=== PATIENT | female | born 1930 | race Caucasian/White ===

== ENCOUNTER 2017-08-09 15:10 | Inpatient (IN) | payer MEDICARE, OTHER ==
[~2017-08-09] VITALS: Ht 170.2 cm; Wt 96.6 kg
[~2017-08-09 15:10] MED LIST: ALLOPURINOL 10100 M1 PO; ASPIR 8181 MG PO; ATIVAN0.5 MG PO; DITROPAN XL15 MG; GABAPENTIN 100100 MG PO; KLOR-CON 1010 MEQ PO; LASIX 40 MG TAB40 M2 PO; LIPITOR10 MG PO; LOPRESSOR25 PO; NORVASC5 MG PO; PLAVIX 75 MG TA75 M1 PO; REQUIP 1 MG TABL1 M1 PO; SYNTHROID75 MCG PO; TRAMADOL 50 MG50 MG PO
[2017-08-09 18:17] VITALS: BP 133/58
--- NOTE | 2017-08-09 19:50 | NUR ---
PT CAME FROM [facility] IN [facility] PT IS ALERT AN ORIENTED X 2 PT IS CONFUSED COULD NOT ANSWER QUESTIONS REGARDING HOME MEDICATIONS, PT IS BEDREST Q 2 TURNS PT HAS LEFT BUTTOCK WOUND WAS ADMITTED WITH HAS BRUISING ON RIGHT SIDE OF FACE, PT ON SPECILTY BED PHYSICIAN SAW PT ORDERED HEAD CT CONSULTED SURGERY RESTARTED HOME MEDICATIONS ORDERED LABS FLUIDS VITALS STABLE PT IS SR ON THE MONITOR, WILL CONTINUE TO MONITOR
[2017-08-09 20:00] VITALS: BP 109/89
[2017-08-09 21:52] LABS: URINE BILIRUBIN NEGATIVE (Negative); URINE BLOOD 1+ (Negative); URINE CLARITY CLEAR; URINE COLOR YELLOW; URINE GLUCOSE-RANDOM NEGATIVE (Negative); URINE KETONES NEGATIVE (Negative); URINE NITRITE-REFLEX NEGATIVE (Negative); URINE PROTEIN TRACE (Negative); URINE SPECIFIC GRAVITY 1.015 (1.005-1.030); URINE UROBILINOGEN 0.2 E.U./dl (0.2-1.0)
[2017-08-09 21:53] LABS: URINE LEUKOCYTES-REFLEX 2+ (Negative)
[2017-08-09 21:59] LABS: SQUAMOUS 0-3 Few /LPF (0-3)
[2017-08-09 22:00] LABS: CASTS None Seen /LPF (None Seen); CRYSTALS None Seen /LPF (None Seen); MUCUS None Seen strn/LPF (None Seen); URINE WBC-REFLEX >25 Many /HPF (0-5); WBC CLUMPS Few (None Seen)
[2017-08-09 22:01] LABS: BACTERIA-REFLEX 1-9 Few /HPF (None Seen); URINE RBC 0-2 Rare /HPF (0-2)
[2017-08-10] VITALS (7 sets, daily range): BP systolic 110–153; BP diastolic 43–56
[2017-08-10] MEDS ORDERED: MAGOX 400400 MG PO (02:29)
[2017-08-10] MEDS ORDERED: MULTI VITAMIN1 EACH PO (02:31)
[2017-08-10] MEDS ORDERED: PREDNISONE 5 MG5 M1 PO (02:32)
[2017-08-10] MEDS ORDERED: PROBIOTIC1 EAC1 PO (02:34)
[2017-08-10] MEDS ORDERED: TOVIAZ4 M1 PO (02:42)
[2017-08-10] MEDS ORDERED: ZANTAC 150MG T150 MG PO (02:45)
[2017-08-10] MEDS ORDERED: TYLENOL EXTRA500 MG PO (02:49)
[2017-08-10] MEDS ORDERED: ATIVAN0.5 MG PO (02:52)
[2017-08-10] MEDS ORDERED: ONDANSETRON HCL4 M2 PO (02:57)
[2017-08-10] MEDS ORDERED: DUONEB 2.5-0.5 M3 ML INH (02:58)
[2017-08-10] MEDS ORDERED: IPRATROPIU0.2 MG/1 M INH (02:59)
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
[2017-08-10 03:41] LABS: CALCIUM 8.7 mg/dL (8.5-10.1); CREATININE 1.6 mg/dL (0.6-1.3); POTASSIUM 4.3 mmol/L (3.5-5.1)
[2017-08-10] MEDS ORDERED: SANTYL OINTMENT30 G1 TOP (04:52)
--- NOTE | 2017-08-10 06:50 | NUR ---
HONG IN ROOM, UPDATED ON STATUS AND SHOWN WOUND PICTURES. STATES WILL SEE HER LATER. WILL MONITOR.
[2017-08-10 08:26] LABS: ABSOLUTE EOSINOPHILS 0.1 thou/uL (0.0-0.7); ABSOLUTE LYMPHOCYTES 1.8 thou/uL (0.8-5.3); ABSOLUTE MONOCYTES 0.5 thou/uL (0.0-1.2); ABSOLUTE NEUTROPHILS 6.2 thou/uL (1.6-8.1); BASOPHILS 0.5 %; EOSINOPHILS 1.3 %; HEMATOCRIT 33.8 % (37.0-47.0); HEMOGLOBIN 10.9 gm/dL (12.0-15.0); MCH 26.5 pg (26.0-34.0); MCHC 32.2 g/dL (28.0-37.0); MCV 82.3 fL (80.0-100.0); MONOCYTES 5.3 %; MPV 7.7 fl. (7.2-11.1); NUCLEATED RBCS 0 /100WBC; PLATELET COUNT* 219 thou/uL (150-400); POLYS 71.9 %; RDW-CV 15.3 % (10.5-14.5); WBC 8.6 thou/uL (4.0-11.0)
[2017-08-10 08:51] LABS: PREALBUMIN 11.1 mg/dL (18.0-35.7)
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
--- NOTE | 2017-08-10 11:34 | NUR ---
ASSUMED ARE OF PATIENT THIS AM AT 0730. PATIENT IS ALERT AND ORIENTED TO PERSON ONLY. REORIENTED TO PLACE AND TIME AND WHY SHE IS IN THE HOSPITAL. PATIENT DENIES PAIN. BRUSIN BHAVANA TO THE RIGHT SIDE OF HER BODY AND FACE. PATIENT HAS A MODERATE SIZE PRESSURE WOUND TO HER RIGHT BUTTOCK. PATIENT KEPT NPO FOR PLACEMENT OF A PICC LINE. VASCULAR CONSULTED FOR PICC LINE PLACEMENT, AND THEN THE PICC LINE NURSE WAS CONTACTED. PATIENT NEEDS TO BE CLEARED BY NEPHROLOGY PRIOR TO PLACEMENT OF THE PICC LINE. DR HEBERT YOU NOTIFIED AND CONSULT ORDERED. PATIENT REPOSITIONED Q 2 HR. IV FLUIDS INFUSING PER ORDER. TELE SHOWS SR WITH A 1D AVB. PATIEN GIVEN ORAL CARE PRN. MIGUEL IS TO DD. UNEQUAL PUPILS NOTED WITH ASSESSMENT.
--- NOTE | 2017-08-10 12:56 | NUR ---
WOUND CARE NOTE: CONSULT RECEIVED FOR UNSTAGEABLE WOUND TO BUTTOCKS. PATIENT PRESENTS WITH AN UNSTAGEABLE PRESSURE ULCER TO THE LEFT BUTTOCK. WOUND MEASURES 7X6.6X4. FULL THICKNESS ULCERATION WITH 85% OF WOUND BED COVERED WITH MOIST BLACK AND YELLOW ESCHAR. FOUL ODOR NOTED. GATITO-WOUND WITH IRRITATION FROM DRAINAGE. PATIENT STATES SHE USES BRIEFS AT HOME TO HELP KEEP THE DRESSING IN PLACE. EDUCATED PATIENT ON IMPORTANCE OF LEAVING BRIEFS OFF BECAUSE THEY HOLD MOISTURE AND HEAT TO THE SKIN, COMMUNICATED UNDERSTANDING. WOUND WAS CLEANSED WITH WOUND CLEANSER, PATTED DRY. PACKED WITH 1/4 STRENGTH DAIKINS MOISTENED GAUZE AND COVERED WITH AN ABD. PATIENT TOLERATED DRESSING CHANGE WELL. EDUCATED PATIENT ON IMPORTANCE OF KEEPING OFF AREA, COMMUNICATED UNDERSTANDING. RECOMMEND DEBRIDEMENT CONTINUE LOW AIR LOSS MATTRESS KEEP OFF WOUND ENCOURAGE GOOD NUTRITION AND HYDRATION ONCE ABLE
--- NOTE | 2017-08-10 17:34 | CON ---
[address] [address] CONSULTATION Name: AGUEDA EVERETT Room: [address] IN .R.#: [id number] Admission: 08/09/17 Attend Phys: Kierra Mares Discharge: Date of : [birth year] Report #: [id number] THIS REPORT FOR: //name// CC: FAM unknown Rosaura Corado DATE OF SERVICE: 08/10/2017 INFECTIOUS DISEASE CONSULTATION ATTENDING PHYSICIAN: Dr. Corado. REASON FOR EVALUATION: Complicated urinary tract infection. HISTORY OF PRESENT ILLNESS: Chart reviewed, patient examined. This is an 86-year-old woman with history of renal cell carcinoma, sleep apnea, who apparently sustained an injury as a result of fall I believe due to a syncopal episode. She is not real forthcoming with any details. I suspect that she lacks certainly what happened. She notes this was roughly 2 weeks ago and it is likely consistent with bruising on the right side of face, torso, lower limbs. She was evaluated and subsequently admitted. She had an elevated troponin, concerned about ischemic cardiac event. Creatinine was elevated at 2.24. Urinalysis showed moderate pyuria. Urine culture is pending. She does have some degree of abdominal related pain and discomfort. She has had some issues with constipation and no bowel movement for a few days. It is not clear that she has had any preadmission fevers. She has been afebrile during the short stay thus far. Denies significant pulmonary-related complaints. Chest x-ray showed diffuse bilateral interstitial opacities, question of atypical or viral pneumonia versus pulmonary edema, empirically started on vancomycin, piperacillin and tazobactam. ALLERGIES: Listed to OXYCODONE, CEPHALEXIN, NITROFURANTOIN, BUDESONIDE, CEFTRIAXONE, FORMOTEROL. CURRENT MEDICATIONS: Include ropinirole, atorvastatin, vancomycin, Zosyn, allopurinol, oxybutynin, famotidine, aspirin, amlodipine, metoprolol, clopidogrel, levothyroxine, ondansetron, gabapentin. PAST MEDICAL HISTORY: As noted above, has sleep apnea, renal cell carcinoma, bilateral cataracts, history of cholelithiasis, previous cholecystectomy, hysterectomy. SOCIAL HISTORY: Nonsmoker, no ethanol. FAMILY HISTORY: [place] [address] CONSULTATION Name: AGUEDA EVERETT Room: [address]#: [id number] Admission: 08/09/17 Attend Phys: Kierra Mares Discharge: Date of : [birth year] Report #: [id number] REVIEW OF SYSTEMS: As above. PHYSICAL EXAMINATION: GENERAL: She is alert, cooperative, in moderate distress. She appears chronically ill. She has got extensive contused areas over the right side of her face, upper right thigh, lateral aspect, appears undernourished. VITAL SIGNS: Temperature 98.9, pulse 70, respirations 17, blood pressure 129/43. SKIN: Warm, dry. HEENT: As noted above. NECK: Supple. LUNGS: Few scattered coarse breath sounds. HEART: Regular. I do not appreciate any murmur. ABDOMEN: Soft. There is some tenderness, although there are no overt peritoneal signs. GENITOURINARY: Deferred. RECTAL: Deferred. LABORATORY DATA: Initial troponin 0.13. CT of the head, diffuse moderate cerebral atrophy, no acute process. Chest x-ray as described, diffuse bilateral interstitial opacities. Lactic acid of 1.0. Urinalysis greater than 25 white cells with some WBC clumps, 1-9 bacteria. CBC: White count of 8.6, H and H 10.9 and 33.8, platelets of 219. Blood cultures are sterile thus far. Prealbumin of 11.1. CRP of 182.7. Urine culture, no growth thus far. ASSESSMENT: Complicated urinary tract infection, not clear if this is a complication as a result of syncopal episode and fall, roughly 2 weeks ago, perhaps had poor p.o. intake. She is not real clear if she has been able to keep up with her fluids with some urinary stasis. Additionally, has changes noted on chest x-ray, there is question of atypical pneumonia. PLAN: We will continue empiric therapy, pyogenic infection of those 2 sites. Add macrolide if something is less likely, some sort of a typical pathogen. She is certainly in tenuous situation, we have to monitor expectantly. <ELECTRONICALLY SIGNED> By: Velasquez Montiel MD 08/10/17 1734 1412 170Jofamilia Montiel MD /nt
--- NOTE | 2017-08-11 03:24 | NUR ---
ASSUMED PT CARE AT 19:15 RECEIVED REPORT FROM NURSE. PT IS ALERT AWAKE ORIENTED X 3. LAYING IN BED WITH NO COMPLAIN OF PAIN BUT STATED SOME KIND OF DISCOMFORT IN BACK. CHANGE POSITION AND MADE COMFORTABLE. SINUS RYTHM ON THE MONITOR. IV FLUID RUNNING IN L FOREARM LINE. ASSESSMENT PERFORMED, WOUND DRESSING IS INTACT, DRY, CLEAN. OXYGEN WAS TITRATED FOROM 3 LITERS TO 2 LITERS AND PT SATURATION WAS 94 AT 2 LITERS NC. MEDICATION WERE ADMNISTERED. MADE COMORTABLE, SCDS ON, TURN Q 2 HOURS. SAFETY PRECAUTION , BED ALARM ON. RESTING IN BED. MADE NPO FPR POSSIBLE SX TOMORROW. WILL CONTINUE TO MONITOR.
[2017-08-11 04:00] VITALS: BP 123/63
[2017-08-11 04:42] LABS: HEMATOCRIT 32.8 % (37.0-47.0); HEMOGLOBIN 10.5 gm/dL (12.0-15.0); MCH 26.4 pg (26.0-34.0); MCV 82.6 fL (80.0-100.0); MPV 8.1 fl. (7.2-11.1); RBC 3.97 mil/uL (4.20-5.00); RDW-CV 15.5 % (10.5-14.5); WBC 9.7 thou/uL (4.0-11.0)
[2017-08-11 04:54] LABS: CALCIUM 8.5 mg/dL (8.5-10.1); CREATININE 1.1 mg/dL (0.6-1.3); POTASSIUM 3.9 mmol/L (3.5-5.1)
--- NOTE | 2017-08-11 06:37 | NUR ---
DR. RIGGINS ON FLOOR, STATES WILL TALK WITH DR. BELLO AND POSSIBLY DEBRIDE WOUND THIS AFTERNOON. STATES CAN HAVE BREAKFAST BUT THEN NPO. WILL MONITOR.
[2017-08-11 08:00] VITALS: BP 151/51
--- NOTE | 2017-08-11 08:00 | NUR ---
AM ASSESSMENT COMPLETE, DEFER TO COMPUTER CHARTING. DIGITAL IMAGING TECHNICIAN TRACKING SB WITH PVC'D. ALERT ORIENTED THIS AM, DENIES PAIN. DRESSING INTACT TO LEFT BUTTOCK. REINFORCEMENT TEACHING GIVEN ON NPO AFTER BREAKFAST FOR PROCEDURE TODAY, VERBALIZED UNDERSTANDING. CALL LIGHT WITHIN REACH, BED ALARM ON FOR SAFETY. WILL MONITOR.
[2017-08-11 12:00] VITALS: BP 131/51
--- NOTE | 2017-08-11 15:36 | NUR ---
CARDIOLOGY CALLING REPORTING PATIENT OK FOR SURGERY. CALL PLACED TO SURGERY NOTIFIED. PATIENT RESTING IN BED AT THIS TIME WITH NO COMPLAINTS. DRESSING CHANGED TO WOUND PER ORDERS. CALL LIGHT WITHIIN REACH, WILL MONITOR.
--- NOTE | 2017-08-11 16:07 | NUR ---
Spoke with DPOA, discussed possible need for skilled at dc, FLORINOA would like Pt to dc to [facility] bed if possible. CM to contact [facility] bed [place].
[2017-08-11 16:45] VITALS: BP 157/57
--- NOTE | 2017-08-11 18:11 | NUR ---
POULTRY CUTTER TRACKING WITH NO CHANGE IN RHYTHM. ALERT, ORIENTED - NO COMPLAINTS OF PAIN TO NURSING AT THIS TIME. DRESSING CHANGED EARLIER TO WOUND ON LEFT BUTTOCK - PATIENT EDUCATED ABOUT NPO AFTER MIDNIGHT FOR PROCEDURE TOMORROW. CALL PLACED TO DPOA ATTEMPTED TO NOTIFY OF PROCEDURE, NO ANSWER. ASSIST GIVEN WITH DINNER TRAY SET UP. CALL LIGHT WITHIN REACH, BED ALARM ON FOR SAFETY. WILL CONTINUE WITH PLAN OF CARE.
[2017-08-11 20:00] VITALS: BP 168/55
[2017-08-12] VITALS: BP 145/39
[2017-08-12 04:00] VITALS: BP 177/76
--- NOTE | 2017-08-12 05:25 | NUR ---
ASSUMED CARE OF PT AT 1900 PT ALERT AND ORIENTED BUT CONFUSED AT TIMES AT BASELINE. VS AND ASSESSMENT STABLE. PT CONTINUES ON LOW AIR LOSS MATRESS, TURNED Q2H. O2 2L NC. NSR ON THE MONITOR. DENIED ANY COMPLAINTS AND SLEPT THROUGH THE NIGHT. WILL CONTINUE PLAN OF CARE.
[2017-08-12 06:13] VITALS: BP 177/76
[2017-08-12 10:35] VITALS: BP 167/63
--- NOTE | 2017-08-12 11:54 | NUR ---
CONTINUE TO FOLLOW, PT HAD DEBRIDEMENT TODAY. PER NOTES, THE FAMILY IS INTERESTED IN [facility]. MADE CONTACT WITH [facility]/SWING BED UNIT. THEY WILL TAKE EVAL TUESDAY BUT ASKED THAT INITIAL INFO BE FAXED. EXPLAINED WHERE PT LIVED, [facility]EN NOTED THAT [facility] IN [place] MAY HAVE SWING BEDS ALSO AND JUST WANTED TO BE SURE FAMILY WAS AWARE OF THAT. WILL DISCUSS FURTHER WITH DPOA. FAXED FACE SHEET AND PROGRESS NOTE INFO TO KIRSTEN/[facility] SWING BED TODAY. WILL F/U WITH HER ON TUESDAY [facility] [phone] FAX [phone]
--- NOTE | 2017-08-12 12:31 | NUR ---
Nutrition: Pt assessed for pressure ulcer on Lt buttock. Admitted with elevated troponin. Wt: 212#. Eating 75% of Heart Healthy diet. RX: vanc, aspirin. Pt sees wound care outpatient. No albumin recorded, prealbumin 11.1. Physciain indicaed Mild PCM - defer DX. Increased nutrient needs related to wound healing as evidenced by pressure ulce, labs. RD will order Arginaid packets b.i.d. to aid in wound healing. Recommend MVI use.
--- NOTE | 2017-08-12 14:28 | EKG ---
[place] [address] ELECTROCARDIOGRAM REPORT Name: AGUEDA EVERETT Room: [address] IN ..#: [id number] Admission: 08/09/17 Attend Phys: Kierra Mares Discharge: Date of : [birth year] Report #: [id number] THIS REPORT FOR: //name// [facility] Test Date: 2017-08-12 Test Time: 07:35:24 Pat Name: AGUEDA EVERETT Department: Room: [address] Gender: F Fly Raiser Lockstitch: : 1930 Requested By: Selvin Alanis Order Number: [id number] Reading MD: Roberto Carlos Huizar Measurements Intervals [place] Rate: 62 P: 11 OH: 173 QRS: -26 QRSD: 108 T: -12 QT: 444 QTc: 451 Interpretive Statements Sinus rhythm Supraventricular bigeminy Probable left atrial enlargement Left ventricular hypertrophy Borderline T abnormalities, inferior leads Compared to ECG 03/20/2015 12:06:48 Atrial premature complex(es) now present Left ventricular hypertrophy now present T-wave abnormality now present Sinus bradycardia no longer present Electronically Signed On 08-12-2017 14:28:24 CDT by Roberto Carlos Huizar [email or web address] <ELECTRONICALLY SIGNED> By: Roberto Carlos Huizar MD, [facility] 08/12/17 1428 0735 0735 Roberto Carlos Huizar MD, [facility] /EPI
--- NOTE | 2017-08-12 15:51 | NUR ---
CONSULTED TO PLACE PICC FOR DIFFICULT IV ACCESS AND NEED FOR HALFWAY ATB THERAPY. ARRIVED PER BED TO INFUSION LAB BAY 3. PT NOTED ALERT TO PERSON AND THAT SHE IS IN HOSPITAL. ORDER AND CONSENT NOTED. RIGHT UPPER ARM ASSESSED WTIH OUTRASOUND. RIGHT BASILIC IDENTIFIED AND NOTED TO BE WIDLEY PATENT. SINGLE LUMAN POWER PICC PLACED TO RIGHT BASILC PER OSPITAL PROTOCOL. LINE WAS TRIMMED TO 43CM AND ADVANCED TO 0CM EXTERNAL WITHOUT DIFFICULTY. LINE CONFIRMED WTIH SHERLOCK 3CG. LINE FLUSHED WITH EASE AND GOOD BRISK BLOOD RETURN NOTED WITH ASPERATION. LINE SECURED AND RELEASED FOR IMMEDIATE USE. PRIMARY NURSING AWARE.
[2017-08-12 16:41] VITALS: BP 131/44
--- NOTE | 2017-08-12 18:26 | NUR ---
PT IN ROOM RELAXING. PT A&O X4 BUT CONFUSED AT TIMES. VSS. PT M/S STATUS. PT Q2T, OPEN WOUND ON L BUTTOCKS DEBRIDEMENT DONE THIS MORNING. SINGLE LUMEN PICC LINE PLACED R UPPER BASILLIC. PT ON 3 L NC. RIVERA CATH /T WOUND. PT DENIES ANY COMPLAINTS OF PAIN. BED IN LOWEST POSITION. CALL LIHT WITHIN REACH. BED ALAM ON. WILL CONTINUE TO MONITOR FOR REMAINDER OF THE SHIFT
[2017-08-12 20:00] VITALS: BP 143/51
--- NOTE | 2017-08-12 23:51 | H ---
[address] [address] HISTORY AND PHYSICAL Name: AGUEDA EVERETT Room: [address] IN .R.#: [id number] Admission: 08/09/17 Attend Phys: Kierra Mares Discharge: Date of : [birth year] Report #: [id number] THIS REPORT FOR: //name// CC: FAM unknown Rosaura Corado DATE OF SERVICE: 08/09/2017 CHIEF COMPLAINT: "I fell." HISTORY OF PRESENT ILLNESS: This is an 86-year-old female who presented to us here from outside facility after multiple falls. The patient tells me that she was trying to pick her up and apparently fell. She cannot really tell me if she passed out. She tells me that the lady who helps her went to her place that time and saw her and EMS was called and the patient was then brought and went to [facility] in [place], [place]. She was seen there in the ER and had labs drawn and noted to have a white count of 12.5. She had a creatinine of 2.24 and a BUN of 55. CAT scan was planned; however, the CAT scan broke down. The patient also has a mild troponin elevation. So the patient was sent here for further management of that. PAST MEDICAL HISTORY: Includes CAD, hypertension, hyperlipidemia, hypothyroidism, obstructive sleep apnea, nephrectomy, chronic renal insufficiency. PAST SURGICAL HISTORY: Hysterectomy, cholecystectomy, right and left knee surgery, most of these were taken from the history as the patient is not the best historian. FAMILY HISTORY: She tells me that there is heart problems in the family. ALLERGIES: No drug allergies. REVIEW OF SYSTEMS: As mentioned above. HOME MEDICATIONS: She does take albuterol as needed, gabapentin 300 mg t.i.d., ipratropium bromide nebs q.i.d., levothyroxine 75 mcg daily, magnesium 250 mg daily, ranitidine 150 mg b.i.d., tramadol 50-100 mg daily p.r.n., prednisone 2.5 mg daily, allopurinol 100 mg b.i.d., aspirin 81 daily, Plavix 75 mg daily, Lasix 20 mg daily, lorazepam 0.5 mg b.i.d., amlodipine besylate 5 mg daily. REVIEW OF SYSTEMS: The patient denies any fever or chills. Denies any cough or cold symptoms. Denies any chest pain. Denies any syncopal episode. She does have some pain in the face. She also has been falling and thought that maybe she fell 5 times. She denies any headache, dizziness or blurry vision. She denies any nausea, vomiting, abdominal pain or constipation. She does state that she had some may be decubitus ulcer and was supposed to see surgery, [place] [address] HISTORY AND PHYSICAL Name: AGUEDA EVERETT Room: [address] IN [facility]#: [id number] Admission: 08/09/17 Attend Phys: Kierra Mares Discharge: Date of : [birth year] Report #: [id number] but she missed that appointment. SOCIAL HISTORY: The patient lives by herself, but a lady comes in to help her. She has 2 kids, but she tells me that they are far away. She denies any smoking, alcohol or drug use. ALLERGIES: No known drug allergies. PHYSICAL EXAMINATION: VITAL SIGNS: Temperature is 36.6, heart rate 75, respiration 16, blood pressure 132/58. GENERAL: The patient is alert, she is oriented x 3. She does have multiple ecchymoses including the right face and the neck and then a lot of bruising in the right hip and to the leg. HEENT: She has a dry mucous membrane. NECK: Supple. No lymphadenopathy. CARDIOVASCULAR: Normal rate, regular rhythm. No murmurs noted. RESPIRATORY: Clear to auscultation bilaterally. No crackles. GASTROINTESTINAL: Abdomen is soft, nontender, nondistended. Good bowel sounds. GENITOURINARY: Deferred. MUSCULOSKELETAL: She does have lower extremity edema. She has ecchymosis in the right hip down to her right leg. The patient was having difficulty moving to sacral decubitus. We will await for the pictures. LABORATORY DATA: From outside facility include a white count of 12.5, hemoglobin is 11, platelet count 251. Protime is 10.8 seconds, ABG is 25.5, random glucose 107, BUN 55, creatinine is 2.24. Sodium is 138, potassium is 4.5, chloride 100, carbon dioxide 29, calcium is 8.9, magnesium is 2, total protein 6.5, albumin is 2.6, total bilirubin is 0.7, AST 41, ALT 31, total CK is 332, globulin 3.9, anion gap is 13.6, total alkaline phosphatase 74. Troponin is 0.16. IMAGING STUDIES: Chest x-ray showed a numerous abnormal just breath, question of a right perihilar infiltrate and chest x-ray had clear per report. Because of the patient. The patient was positioned. IMPRESSION: 1. The patient is an 86-year-old female who presented to us here after a fall. She does have multiple bruising on the right face down to the right hip and extremity from the fall. Has had multiple falls in the past. 2. Acute on chronic kidney disease. 3. No weakness. 4. Multiple falls. 5. History of hypertension. 6. Hyperlipidemia. 7. Hypothyroidism. 8. History of obstructive sleep apnea. 9. Nephrectomy. 10. Dementia. 11. Hysterectomy. 12. Cholecystectomy. 13. History of abdominal aortic repair. 14. Sacral decubitus ulcer unstageable, POA. PLAN: The patient will be admitted. She is likely going to be here for more than 2 midnights. We will do a CT scan of the head given the patient's fall. They were not able to do that in the outlying facility. . I will also repeat a chest x-ray as the chest x-ray was unclear because of patient's position. Start antibiotics if she has pneumonia. We will ask PT and OT [place] [address] HISTORY AND PHYSICAL Name: AGUEDA EVERETT Room: [address] IN [facility]#: [id number] Admission: 08/09/17 Attend Phys: Kierra Mares Discharge: Date of : [birth year] Report #: [id number] do serial troponin and we will put her on a diet. Continue IV fluids, follow the labs in the morning. She already had dialysis done today, so we will repeat those. She also has pressure ulcer that was supposed to be followed by surgery, so will ask surgery to see it. We will continue the wound care. I would hold the patient's diuretics for now. We will do Lovenox for DVT prophylaxis. The patient's CAT scan did not show any bleed. <ELECTRONICALLY SIGNED> By: Rosaura Corado MD 08/12/17 2351 01 39Rosaura Corado MD /PMT
[2017-08-13] VITALS: BP 140/42
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
--- NOTE | 2017-08-13 07:15 | NUR ---
ASSUMED CARE OF PT ASSESSED AND DOCUMENTED. PT IS A&O WITH NO C/O PAIN. PT WAS LETHARGIC AND HAD TO BE CONTINUALLY PRODDED TO ANSW QUESTIONS. PT IS ON FALL RISK PER FACILITY PROYOCOL. PT HAS MULTIBLE BRUISES ON FACE AND NECK. PT HAS A DRSG ON L BUTTOCK WHICH IS CLEAN DRY AND INTACT. PT HAS A RIVERA. WM.
[2017-08-13 08:00] VITALS: BP 132/47
--- NOTE | 2017-08-13 12:20 | CON ---
[address] [address] CONSULTATION Name: EDDKRISTYAGUEDA Mike Room: [address] IN M.R.#: [id number] Admission: 08/09/17 Attend Phys: Kierra Mares Discharge: Date of : [birth year] Report #: [id number] THIS REPORT FOR: //name// CC: FAM unknown Rosaura Corado DATE OF SERVICE: 08/10/2017 HISTORY OF PRESENT ILLNESS: The patient is an 86-year-old white female who I was asked to see in the hospital today because of her history of coronary artery disease. The patient has a long history of coronary artery disease. She had a stent placed in her LAD and right coronary artery in 2012. This was following an abnormal stress test. She underwent a repeat cardiac catheterization in 2014 after she had an abnormal nuclear stress test. This was performed by Dr. Arlyn woodard at [facility]. This was performed from the right femoral artery. Ejection fraction was 70%. There was a stent in the LAD with no restenosis. Circumflex had no significant disease. The right coronary artery stent with no restenosis. Medical therapy was recommended. The patient is not very active because of her age. Recently, she has been falling. She has been weak. There has apparently been no loss of consciousness. After a fall, she was taken to the Emergency Room in [place], [place]. She was transferred to [facility] for further evaluation and treatment. PAST MEDICAL HISTORY: Otherwise significant for multiple surgical procedures including bilateral knee surgery, hysterectomy, and cholecystectomy. She has a history of hypertension and chronic kidney disease. MEDICATIONS: Consist of albuterol nebulizer, Neurontin, Synthroid, ranitidine, allopurinol, aspirin, Plavix, Lasix, amlodipine. ALLERGIES: She has no known drug allergies. FAMILY HISTORY: Negative for heart disease. SOCIAL HISTORY: She is , lives in [place], [place]. Quit smoking years ago. No alcohol abuse. REVIEW OF SYSTEMS: She has had no history of stroke, asthma, peptic ulcer disease, liver disease. She has chronic kidney disease, no cancer. PHYSICAL EXAMINATION: GENERAL: Revealed an elderly female, lying in bed. She appeared in no acute distress. VITAL SIGNS: She had a blood pressure of 130/60, pulse 70. She is afebrile. HEENT: She was anicteric, conjunctiva pink. Mucous members appear dry. NECK: [place] [id number] CONSULTATION Name: AGUEDA EVERETT Room: [address]#: [id number] Admission: 08/09/17 Attend Phys: Kierra Mares Discharge: Date of : [birth year] Report #: [id number] CHEST: Clear to auscultation. CARDIOVASCULAR: Regular rate and rhythm. ABDOMEN: Obese, soft, nontender. EXTREMITIES: She had no pitting edema. SKIN: Cool and dry. NEUROLOGIC: She is very slow moving. On the monitor, she appeared to be in a sinus rhythm. She had a chest x-ray on admission yesterday that showed bilateral infiltrates, mild cardiomegaly. CT scan of the head done yesterday without contrast showed atrophy. LABORATORY DATA: Sodium 141, BUN 43, creatinine 1.6. Her troponin was 0.13. White blood cell count 8.6, hemoglobin 10.9. IMPRESSION AND RECOMMENDATIONS: 1. Elevated troponin. Previous stents. No recent angina. I would discontinue the Plavix and take only aspirin 81 mg a day. 2. Recurrent falls. Suspect problem with balance. 3. Chronic kidney disease. 4. Hypertension. The patient has been on a calcium robbin. 5. Sleep apnea. <ELECTRONICALLY SIGNED> By: Constantin Reese MD, FACC 08/13/17 1220 1510 [id number] Reese MD, FACC /nt
[2017-08-13 15:20] VITALS: BP 128/48
--- NOTE | 2017-08-13 16:30 | NUR ---
PT HAS SLEPT MOST OF THIS SHIFT. SHE WAS UP WITH PT AND A WALKER AND STATED HOW GOOD IT FELT TO BE UP. PT HAS NO S OR SX OF ADVERSE REACTION TO ABT. CHANGED DRSG TO BUTTOCK PER ORDERS. EDUCATION GIVEN ON DEMAND. HOURLY ROUNDING COMPLETE. PT HAD A BETTER APPETITE AT LUNCH TODAY AND STATED SHE WAS HUNGRY. SHE HAS BEEN MORE ALERT AFTER LUNCH. CONT TO TURN AND REPOSITION PT EVERY 2 HOURS WELL REPOSITION WITH AIRLOSS BED.
[2017-08-13 20:00] VITALS: BP 123/47
[2017-08-14 01:00] VITALS: BP 131/54
[2017-08-14 04:53] LABS: HEMATOCRIT 34.9 % (37.0-47.0); HEMOGLOBIN 11.2 gm/dL (12.0-15.0); MCH 26.3 pg (26.0-34.0); MCV 82.1 fL (80.0-100.0); RBC 4.26 mil/uL (4.20-5.00); RDW-CV 15.3 % (10.5-14.5); WBC 8.6 thou/uL (4.0-11.0)
[2017-08-14 05:28] LABS: ALBUMIN 2.1 g/dL (3.4-5.0); CALCIUM 8.3 mg/dL (8.5-10.1); CREATININE 1.1 mg/dL (0.6-1.3); MAGNESIUM 1.9 mg/dL (1.8-2.4); POTASSIUM 4.4 mmol/L (3.5-5.1); TOTAL BILIRUBIN 0.6 mg/dL (<0.1-1.0)
--- NOTE | 2017-08-14 07:30 | NUR ---
PATIENT REMAINS STABLE THROUGHOUT SHIFT AND IS PROGRESSING TOWARDS GOALS: PATIENT A&OX4, CONFUSED AND LETHARGIC AT TIMES. GABAPENTIN HELD THIS AM AND TRAMADOL HELD THROUGHOUT SHIFT. PATIENT WAS MORE ALERT THIS AM DURING MEDICATION ADMINISTRATION. PATIENT HAS REMAINED ON 3L O2 NC WITH SATS >92%. DRESSING CHANGE COMPLETED WITH PICTURE TAKEN, PATIENT TOLERATED WELL WITH NO C/O PAIN OR DISCOMFORT. HOURLY ROUNDING OBSERVED. CALL LIGHT WITHIN REACH
[2017-08-14 08:00] VITALS: BP 141/42
--- NOTE | 2017-08-14 11:46 | OP ---
[facility] [address] [place] [address] OPERATIVE REPORT Name: AGUEDA EVERETT Room: [address] IN .R.#: [id number] Admission: 08/09/17 Attend Phys: Kierra aMres Discharge: Date of : [birth year] Report #: [id number] THIS REPORT FOR: //name// CC: FAM unknown Rosaura Corado DATE OF SERVICE: 08/12/2017 PREOPERATIVE DIAGNOSIS: gluteal ulcer. POSTOPERATIVE DIAGNOSIS: gluteal ulcer. PROCEDURE: Excisional debridement of 2 x 3 cm of gluteal ulcer with mets scissors down to and including skin, subcutaneous tissue and fat. SURGEON: Amy Veliz M.D. RELOCATION COUNSELOR: Madina Heredia DO. ESTIMATED BLOOD LOSS: One mL. COMPLICATIONS: None. FINDINGS: A 2 x 3 cm of tissue removed, with resulting defect 3 x 5 x 6 cm. COMPLICATIONS: None. DESCRIPTION OF PROCEDURE: Full informed consent obtained with family, with full discussion of all risks, benefits and alternatives up to including . The patient was taken to the operating room. We positioned in a right lateral decubitus, prepped and draped in standard sterile fashion. Timeout performed with all in agreement. We began with inspection and palpation. There was no evidence of any deep infection or abscess. We began with sharp excisional debridement with scissors of some necrotic tissue up to healthy bleeding tissue. This was down to and including some skin, subcutaneous tissue and fat. There was approximately 2 x 3 cm removed. Next, I inspected the internal defect. It appeared to be healthy tissue, with some chance of recovering as long as there is adequate pressure offloading. Of note, this wound was present prior to admission. Next, we used cautery to achieve hemostasis and did not believe it was an appropriate to situation for a wound VAC, and therefore, [place] [address] OPERATIVE REPORT Name: AGUEDA EVERETT Room: [address]#: [id number] Admission: 08/09/17 Attend Phys: Kierra Mares Discharge: Date of : [birth year] Report #: [id number] dressing. Sponge, needle and instrument counts were correct at the end of the case. The patient tolerated well. <ELECTRONICALLY SIGNED> By: Amy Veliz MD 08/14/17 1146 0830 [id number] Veliz MD /nt
--- NOTE | 2017-08-14 13:00 | NUR ---
ASSUMED CARE OF PT THIS AM ASSESSED AND DOCUMENTED. PT IS A&O AND HAS HAD NO C/O PAIN. PT TRANSFERRED TO [facility]. REPORT GIVEN TO CHRISTIE. NO S OR SX OF ADVERSE REACTION TO ABT. MEDICATIONS ADMINISTERED PER JUN.
--- NOTE | 2017-08-14 13:04 | NUR ---
ASSUMED CARE OF PATIENT AT THIS TIME. AGREE WITH PREVIOUS ASSESSMENT. PATIENT IS ALERT AND ORIENTED. FORGETFUL AT TIMES PER PREV NOTES. POSITIONED ON RIGHT SIDE WITH WEDGES IN PLACE. IV ZOSYN INFUSING ORDERED. BED ALARM SET. LUNCH PRIOR TO TRANSFER. PATIENT DENIES PAIN. ORIENTED TO ROOM AND BED CONTROLS. PATIENT IS CALLING FAMILY TO INFORM THEM OF THE TRANSFER.
--- NOTE | 2017-08-14 16:51 | NUR ---
PATIENT REMAINS ALERT AND ORIENTED. FORGETFUL AT TIMES. IV ANTIBIOTICS INFUSING ORDERED. DENIES PAIN. GABAPENTIN AND TRAMADOL HELD TO HELP IMPORVE LETHARGY. TOLERATING MEAL. PASSING FLATUS, NO BM. PATIENT REFUSES LAXATIVE PREVIOUS NURSE GAVE HER PRUNE AND APPLE JUICE AND HER STOMACH HAS BEEN CRAMPING. REPOSITIONED MARTHA 2 HOURS. DECUB LEFT GLUTEAL REGION, DRESSING CHANGED BY PRIOR NURSE. SCD'S IN PLACE. PICC LINE TO RIGHT UPPER ARM CLEAN/DRY AND INTACT- DRESSING DATE OF 08/12. IV TUBING CHANGED THIS SHIFT. O2 AT 3L- SAT 97%. BED ALARM IN USE. CALL LIGHT WITHIN REACH. WILL CONTINUE TO MONITOR.
[2017-08-14 17:23] VITALS: BP 149/45
[2017-08-14 21:50] VITALS: BP 163/64
--- NOTE | 2017-08-15 05:04 | NUR ---
PATIENT HAS REMAINED ALERT AND ORIENTED X 4 THROUGHOUT THE SHIFT AND RESTING QUIETLY ON HOURLY ROUNDS. TURNED Q2H WITH ASSIST. DRESSING CHANGE TO LEFT BUTTOCKS WOUND AT HS. PATIENT TOLERATED WELL. HAS DECLINED ORDERED SCHEDULED GABAPENTIN AND TRAMADOL. VITAL SIGNS STABLE. MEDS/ANTIBIOTICS PER ORDERS. CONTINUE TO MONITOR.
[2017-08-15 08:15] VITALS: BP 154/68
--- NOTE | 2017-08-15 14:29 | NUR ---
SPOKE WITH KIRSTEN/[facility]MISS[facility] FOR [facility] [phone]. TOLD HER POTENTIAL FOR DISCHARGE TOMORROW. FAXED CLINICAL INFORMATION TO HER [phone].
--- NOTE | 2017-08-15 15:06 | S ---
[address] [address] SURGICAL PATH RPT PROCEDURE Name: AGUEDA EVERETT Room: [address] IN [facility]#: [id number] Admission: 08/09/17 Date of : [birth year] Discharge: Report #: [id number] Path Case #: [id number] PATHOLOGY REPORT COLLECTION DATE: 08/12/2017 RECEIVED DATE: 08/12/2017 SUBMITTING PHYS: Dr. Amy Veliz OTHER PHYS: Dr. Margaux Bowling SPECIMEN(S) RECEIVED: A.Necrotic tissue left gluteal wound * * * * * * * * * * * * FINAL DIAGNOSIS: Necrotic tissue left gluteal wound: - Benign fibrofatty tissue with acute inflammation and necrosis. (LELA:mgr; 08/15/2017) PATHOLOGIST: Mian Villarreal M.D. REPORT ELECTRONICALLY SIGNED BY: Mian Villarreal M.D. DATE/TIME: 08/15/2017 15:06 * * * * * * * * * * * * GROSS PATHOLOGY: The specimen is received in formalin labeled "Agueda Everett necrotic tissue left gluteal wound". Received is a segment of major-brown necrotic-appearing soft tissue measuring 3.7 x 3.2 x 1.1 cm in greatest dimensions. The specimen is submitted representatively in cassette A1. (CAA; 08/12/2017) CLINICAL HISTORY: Left gluteal wound INITIAL CPT CODE(S): A; 77087 Professional services performed by [facility] at [facility] [address] [place] [address] Technical services performed by [facility] at [address] [place] [address], [address] [address]. [facility] [address] [place] [address] SURGICAL PATH RPT PROCEDURE Name: AGUEDA EVERETT Room: [address] IN .R.#: [id number] Admission: 08/09/17 Date of : [birth year] Discharge: Report #: [id number] Path Case #: [id number] [address] PHONE: [phone] DIRECTOR: Connor Baker M.D. * * * END OF REPORT * * *
--- NOTE | 2017-08-15 15:19 | NUR ---
NOTIFIED DR. SANCHEZ THAT WOUND CARE RECOMMENDED WOUND VAC WHEN PATIENT IS DISCHARGED TO FACILITY. ORDERS FOR WOUND VAC TO BE PLACED ONCE PATIENT TRANSFERS TO SNF. CASE MANAGEMENT NOTIFIED.
[2017-08-15 16:00] VITALS: BP 130/54
--- NOTE | 2017-08-15 16:02 | NUR ---
WOUND NURSE: PATIENT SEEN FOR WOUND ASSESSMENT OF LEFT BUTTOCK LESION. PRESENTS DEEP CIRCIFORM LESION MEASURING 5.0 X 4.0 X 5.0 CM. WOUND BED CONTAINS RED AND YELLOWISH NONGRANULATING TISSUE. THERE IS SIGNIFICANT AMOUNT OF YELLOWISH CLEAR TO OPAQUE DRAINAGE NOTED. THE PERIWOUND TISSUE PRESENTS WITH LOCALIZED REDNESS AND NO WARMTH. PATIENT IS ON A LOW AIRLOSS MATTRESS. WOUND WAS RECENTLY DRESSED BY STAFF NURSE CARING FOR PATIENT. WOUND WAS REPACKED WITH 1/4 STR DAKINS DAMPENED GAUZE, THEN COVERED WITH A BORDERED FOAM DRESSING. PATIENT MAY DISCHARGE TOMORROW PER THE NURSE CARING FOR HER. RECOMMEND USE OF NPWT AFTER DICHARGE TO DIFFERENT FACILITY ALONG WITH CONTINUED USE OF LOW AIRLOSS MATTRESS.
--- NOTE | 2017-08-15 17:00 | NUR ---
PATIENT REMAINS ALERT AND ORIENTED. FORGETFUL AT TIMES. COOPERATIVE WITH PT/OT. DRESSING CHANGED THIS AM BY ADMISSIONS SUPERVISOR AND THIS AFTERNOON BY WOUND CARE NURSE. REPOSITIONED EVERY 2 HOURS. LARGE BM THIS AM AND AFTERNOON. RIVERA REMAINS IN PLACE. SCD'S ON. VSS. O2 SAT 96% ON 3L. IV VANC AND ZOSYN ORDERED. RIGHT UPPER ARM PICC CLEAN/DRY AND INTACT. FLUSHES/DRAWS BLOOD FREELY. BED ALARM IN USE. CALL LIGHT WITHIN REACH. WILL CONTINUE TO MONITOR.
[2017-08-15 20:25] VITALS: BP 173/77
[2017-08-16] VITALS: BP 114/83
--- NOTE | 2017-08-16 05:52 | NUR ---
PATIENT ALERT, CONFUSED DURING THE NIGHT. VITALS STABLE. ON 3L OF OXYGEN. DENIES PAIN. REPOSITONED EVERY TWO HOURS. RIVERA TO DEPENDENT DRAINAGE, VOIDING ADEQUATELY. INCONTINENT OF STOOL THIS MORNING. FREQUENT ROUNDS. BED ALARM IN USE. NURSING WILL CONTINUE TO MONITOR.
[2017-08-16 08:34] VITALS: BP 128/62
[2017-08-16 09:49] VITALS: BP 128/62
[2017-08-16] MEDS ORDERED: ZOSYN 3.3753.375 GM IV (09:49)
--- NOTE | 2017-08-16 12:09 | NUR ---
REPORT CALLED TO SHON AT [facility]
--- NOTE | 2017-08-16 12:53 | NUR ---
PATIENT DISCHARGED TO [facility] AT THIS TIME VIA [facility]. REPORT TO SHON. PATIENTS PURSE, CLOTHES AND TOILETRIES SENT WITH HER. IV REMOVED. PICC LINE REMAINS IN PLACE FOR 2 WEEKS OF IV ANTIBIOTIC THERAPY.
== END 2017-08-16 12:55 | DRG 673 ==
LOC: M.2W 15:10 → M.ORTHSURG 08-14 12:36
PROVIDERS: Internal Medicine; ADMIT Internal Medicine
PROC: 0JB70ZZ Excision of Back Subcutaneous Tissue and Fascia, Open Approach (ICD-10-PCS; principal; 2017-08-09)
PROC: 05HB33Z Insertion of Infusion Device into Right Basilic Vein, Percutaneous Approach (ICD-10-PCS; 2017-08-12)
DX: N17.9 Acute kidney failure, unspecified (principal); J15.9 Unspecified bacterial pneumonia; E44.1 Mild protein-calorie malnutrition; L89.150 Pressure ulcer of sacral region, unstageable; S00.83XA Contusion of other part of head, initial encounter; R58 Hemorrhage, not elsewhere classified; I25.10 Atherosclerotic heart disease of native coronary artery without angina pectoris; E78.5 Hyperlipidemia, unspecified; E03.9 Hypothyroidism, unspecified; G47.33 Obstructive sleep apnea (adult) (pediatric); I12.9 Hypertensive chronic kidney disease with stage 1 through stage 4 chronic kidney disease, or unspecified chronic kidney disease; D64.9 Anemia, unspecified; B96.5 Pseudomonas (aeruginosa) (mallei) (pseudomallei) as the cause of diseases classified elsewhere; K59.00 Constipation, unspecified; B96.1 Klebsiella pneumoniae [K. pneumoniae] as the cause of diseases classified elsewhere; S70.01XA Contusion of right hip, initial encounter; F03.90 Unspecified dementia, unspecified severity, without behavioral disturbance, psychotic disturbance, mood disturbance, and anxiety; W19.XXXA Unspecified fall, initial encounter; N18.9 Chronic kidney disease, unspecified; Z90.5 Acquired absence of kidney; Z90.710 Acquired absence of both cervix and uterus; Z90.49 Acquired absence of other specified parts of digestive tract; Z79.899 Other long term (current) drug therapy; Z79.82 Long term (current) use of aspirin; Y93.89 Activity, other specified; Y92.89 Other specified places as the place of occurrence of the external cause; Y99.8 Other external cause status; Z88.8 Allergy status to other drugs, medicaments and biological substances; Z98.42 Cataract extraction status, left eye; Z98.41 Cataract extraction status, right eye; Z95.5 Presence of coronary angioplasty implant and graft; Z68.33 Body mass index [BMI] 33.0-33.9, adult